=== PATIENT | male | born 1990 | race African-American/Black ===

== ENCOUNTER 2018-04-17 21:01 | Emergency (ER) | payer SELFPAY ==
[2018-04-17] MEDS ORDERED: Ketorolac Tromethamine 30 MG/ML VIAL ONE ×2 (21:59)
--- NOTE | 2018-04-17 22:26 | RAD ---
LUMBAR SPINE THREE VIEWS: 04/17/18 HISTORY: 27-year-old male with history of low back pain following an injury at work. FINDINGS: No evidence for compression fracture. No malalignment. Disc spaces are adequately preserved. IMPRESSION: No significant acute process involving the lumbar spine. POS: [facility]
== END 2018-04-17 22:32 | disposition home or self-care (01) ==
LOC: ERS 21:01
DX: M54.5 Low back pain (principal); F17.210 Nicotine dependence, cigarettes, uncomplicated
CPT/HCPCS: 72100; 96372; J1885

== ENCOUNTER 2018-06-04 21:15 | Emergency (ER) | payer SELFPAY ==
[2018-06-04] MEDS ORDERED: Ketorolac Tromethamine 60 MG/2 ML VIAL ONE (22:15)
== END 2018-06-04 22:29 | disposition home or self-care (01) ==
LOC: ERS 21:15
DX: K02.9 Dental caries, unspecified (principal); F17.210 Nicotine dependence, cigarettes, uncomplicated
CPT/HCPCS: 96372; J1885

== ENCOUNTER 2018-11-25 13:34 | Emergency (ER) | payer SELFPAY ==
[2018-11-25] MEDS ORDERED: Adacel (T-DAP) 0.5 ML SYRINGE ONE (16:52)
[2018-11-25] MEDS ORDERED: HYDROcodone/Acetaminophen 10/325 mg Tablet ONE (17:48)
[2018-11-25] MEDS ORDERED: Acetaminophen 500 MG TAB ONE (18:07)
== END 2018-11-25 17:55 | disposition home or self-care (01) ==
LOC: ERS 13:34
DX: S41.111A Laceration without foreign body of right upper arm, initial encounter (principal); F17.210 Nicotine dependence, cigarettes, uncomplicated; Z71.6 Tobacco abuse counseling; Z23 Encounter for immunization; W25.XXXA Contact with sharp glass, initial encounter
CPT/HCPCS: 90471; 90715; 99406

== ENCOUNTER 2018-12-03 01:09 | Emergency (ER) | payer SELFPAY | END 2018-12-03 02:50 | disposition left against medical advice (07) | LOC: ERS 01:09 | DX: Z53.21 Procedure and treatment not carried out due to patient leaving prior to being seen by health care provider (principal) ==

== ENCOUNTER 2018-12-29 21:37 | Emergency (ER) | payer SELFPAY ==
[2018-12-29] MEDS ORDERED: Ketorolac Tromethamine 30 MG/ML VIAL ONE (22:39)
[2018-12-29] MEDS ORDERED: diphenhydrAMINE 50 MG/ML VIAL ONE (22:39)
[2018-12-29] MEDS ORDERED: Metoclopramide HCl 10 MG/2 ML VIAL ONE (22:39)
[2018-12-29] MEDS ORDERED: Metoclopramide HCl 10 MG TAB ONE (23:11)
== END 2018-12-29 23:26 | disposition home or self-care (01) ==
LOC: ERS 21:37
DX: R51 Headache (principal); F17.210 Nicotine dependence, cigarettes, uncomplicated
CPT/HCPCS: 99283; J1200; J1885; J2765; J8597

== ENCOUNTER 2019-08-01 00:06 | Emergency (ER) | payer SELFPAY ==
[2019-08-01] MEDS ORDERED: Ondansetron ODT 4 MG TAB ONE (00:18)
[2019-08-01] MEDS ORDERED: hydrOXYzine 25 MG TAB ONE (00:20)
== END 2019-08-01 00:43 | disposition home or self-care (01) ==
LOC: ERS 00:06
DX: F41.1 Generalized anxiety disorder (principal); R11.0 Nausea; F17.210 Nicotine dependence, cigarettes, uncomplicated
CPT/HCPCS: 93005; Q0162

== ENCOUNTER 2019-08-01 02:50 | Emergency (ER) | payer SELFPAY ==
[2019-08-01] MEDS ORDERED: Lorazepam 2 MG/ML VIAL ONE (03:10)
== END 2019-08-01 04:05 | disposition home or self-care (01) ==
LOC: ERS 02:50
DX: F41.9 Anxiety disorder, unspecified (principal); R00.2 Palpitations; F17.210 Nicotine dependence, cigarettes, uncomplicated
CPT/HCPCS: 93005; 96374; J2060

== ENCOUNTER 2019-08-06 00:12 | Emergency (ER) | payer SELFPAY ==
[2019-08-06] MEDS ORDERED: hydrOXYzine 25 MG TAB ONE (00:43)
--- NOTE | 2019-08-08 14:35 | EKG ---
Test Reason : Blood Pressure : / mmHG Vent. Rate : 052 BPM Atrial Rate : 052 BPM P-R Int : 194 ms QRS Dur : 094 ms QT Int : 376 ms P-R-T Axes : 066 062 049 degrees QTc Int : 349 ms Sinus bradycardia Otherwise normal ECG Reconfirmed by BRANT LIZ ([id number]), video tape editor VIRGILIO BARCENAS ([id number]) on 08/08/2019 2:34:38 PM Referred By: Confirmed By:BRANT LIZ
== END 2019-08-06 00:59 | disposition home or self-care (01) ==
LOC: ERS 00:12
DX: F41.9 Anxiety disorder, unspecified (principal); F17.210 Nicotine dependence, cigarettes, uncomplicated
CPT/HCPCS: 93005

== ENCOUNTER 2019-08-08 23:26 | Emergency (ER) | payer SELFPAY | END 2019-08-09 00:04 | disposition home or self-care (01) | LOC: ERS 23:26 | DX: F41.9 Anxiety disorder, unspecified (principal); M25.562 Pain in left knee; F17.210 Nicotine dependence, cigarettes, uncomplicated | CPT/HCPCS: 99283 ==

== ENCOUNTER 2019-08-14 03:28 | Emergency (ER) | payer SELFPAY | END 2019-08-14 03:45 | disposition home or self-care (01) | LOC: ERS 03:28 | DX: F41.9 Anxiety disorder, unspecified (principal); F17.210 Nicotine dependence, cigarettes, uncomplicated | CPT/HCPCS: 99281 ==

== ENCOUNTER 2019-08-21 15:49 | Emergency (ER) | payer SELFPAY ==
[2019-08-21 16:33] LABS: #Basophils 0.1 thou/uL (0.0-0.2); #Eosinphils 0.2 thou/uL (0.0-0.7); #Monocytes 0.8 thou/uL (0.11-0.59); #Neutrophils 2.7 thou/uL (1.40-6.50); %Basophils 2.6 % (0.0-1.0); %Eosinophils 3.2 % (0.0-10.0); %Lymphocytes 34.5 % (21.0-51.0); %Monocytes 13.1 % (0.0-10.0); %Neutrophils 46.6 % (42.0-75.0); Hemoglobin 14.4 g/dL (14.0-18.0); Mean Corpuscular HGB CONC 32.9 g/dL (32.0-36.0); Mean Corpuscular Hemoglobin 29.9 pg (27.0-31.0); Mean Corpuscular Volume 90.7 fL (78.0-98.0); Mean Platelet Volume 7.2 fL (7.4-10.4); Platelet Count 269 thou/uL (130-400); RBC Distribution Width 12.8 % (11.5-14.5); Red Blood Cell (RBC) Count 4.83 mill/uL (4.70-6.10); White Blood Cell (WBC) Count 5.7 thou/uL (4.8-10.8)
[2019-08-21] MEDS ORDERED: Acetaminophen 500 MG TAB ONE (16:41)
[2019-08-21] MEDS ORDERED: Ondansetron PF 4 MG/2 ML Vial ONE (16:41)
[2019-08-21 16:52] LABS: ALT (SGPT) 13 U/L (8-55); AST (SGOT) 16 U/L (5-34); Albumin 4.2 g/dL (3.5-5.0); Alkaline Phosphatase 66 U/L (40-110); Anion Gap 9 mmol/L (10-20); BUN (Urea Nitrogen) 6 mg/dL (8.9-20.6); Bilirubin, Total 0.7 mg/dL (0.2-1.2); Calc. Creatinine Clearance 0 mL/min (70-130); Calcium 9.1 mg/dL (7.8-10.44); Carbon Dioxide 28 mmol/L (22-29); Chloride 103 mmol/L (98-107); Estimated GFR-MDRD Greater than 90; Globulin 2.9 g/dL (2.4-3.5); Glucose 108 mg/dL (70-105); Potassium 3.7 mmol/L (3.5-5.1); Protein, Total 7.1 g/dL (6.0-8.3); Sodium 136 mmol/L (136-145)
[2019-08-21 17:19] LABS: Bacteria/HPF None Seen HPF (None Seen); Squamous Epithelial 0-3 HPF (0-3); WBC/HPF 0-3 HPF (0-3)
[2019-08-21 17:34] LABS: Bilirubin Negative (Negative); Blood, Urine Negative (Negative); Clarity Clear (Clear); Glucose, Urine (Dipstick) Normal (Negative); Leukocyte Negative Leu/uL (Negative); Nitrite Negative (Negative); Protein, Urine (Dipstick) Negative (Neg-Trace); Urobilinogen Normal mg/dL (Less than 2)
== END 2019-08-21 18:54 | disposition home or self-care (01) ==
LOC: ERS 15:49
DX: R11.2 Nausea with vomiting, unspecified (principal); R51 Headache; R53.81 Other malaise; F41.9 Anxiety disorder, unspecified; F17.210 Nicotine dependence, cigarettes, uncomplicated
CPT/HCPCS: 36415; 81003; 93005; 96361; 96374; J2405

== ENCOUNTER 2021-07-22 17:39 | Emergency (ER) | payer OTHER, SELFPAY ==
[2021-07-22 18:55] LABS: #Eosinphils 0.1 thou/uL (0.0-0.7); #Lymphocytes 1.3 thou/uL (1.20-3.40); #Monocytes 0.7 thou/uL (0.11-0.59); #Neutrophils 3.8 thou/uL (1.40-6.50); %Basophils 0.8 % (0.0-1.0); %Eosinophils 1.1 % (0.0-10.0); %Lymphocytes 22.6 % (21.0-51.0); %Monocytes 11.9 % (0.0-10.0); %Neutrophils 63.6 % (42.0-75.0); Hemoglobin 15.3 g/dL (14.0-18.0); Mean Corpuscular HGB CONC 32.8 g/dL (32.0-36.0); Mean Corpuscular Hemoglobin 29.5 pg (27.0-31.0); Mean Corpuscular Volume 89.7 fL (78.0-98.0); Mean Platelet Volume 7.8 fL (7.4-10.4); Platelet Count 287 thou/uL (130-400); RBC Distribution Width 12.9 % (11.5-14.5); Red Blood Cell (RBC) Count 5.19 mill/uL (4.70-6.10); White Blood Cell (WBC) Count 5.9 thou/uL (4.8-10.8)
[2021-07-22 19:16] LABS: ALT (SGPT) 21 U/L (8-55); AST (SGOT) 21 U/L (5-34); Albumin 4.6 g/dL (3.5-5.0); Alkaline Phosphatase 68 U/L (40-110); Anion Gap 15 mmol/L (10-20); BUN (Urea Nitrogen) 14 mg/dL (8.9-20.6); Bilirubin, Total 0.7 mg/dL (0.2-1.2); Calc. Creatinine Clearance 0 mL/min (70-130); Calcium 9.5 mg/dL (7.8-10.44); Carbon Dioxide 25 mmol/L (22-29); Chloride 103 mmol/L (98-107); Globulin 3.6 g/dL (2.4-3.5); Glucose 97 mg/dL (70-105); Potassium 4.1 mmol/L (3.5-5.1); Protein, Total 8.2 g/dL (6.0-8.3); Sodium 139 mmol/L (136-145)
== END 2021-07-22 20:49 ==
LOC: ERS 17:39
DX: R55 Syncope and collapse (principal); S09.90XA Unspecified injury of head, initial encounter; W22.8XXA Striking against or struck by other objects, initial encounter; F17.210 Nicotine dependence, cigarettes, uncomplicated
CPT/HCPCS: 70450; 72125; 80053; 85025; 93005